=== PATIENT | male | born 1985 | race Caucasian/White ===

== ENCOUNTER → 2017-01-13 | Outpatient (CLI) | payer BC ==
--- NOTE | 2017-01-13 14:40 | REP ---
MR LUMBAR SPINE WITHOUT CONTRAST: HISTORY: Back pain. There is no disc bulge or herniation at the L1-2 through L3-4 and L5-S1 levels. The nerves exit the neural foramina without compression. A diffuse disc bulge is present at the L4-5 level. There is minimal compression of the thecal sac. The L4 nerves exit the neural foramina without compression. The conus medullaris is normal in appearance terminating at the level of the L1-2 intervertebral disc. Normal signal intensity is present in the lumbar intervertebral discs and vertebral bodies. IMPRESSION: Diffuse disc bulge at the L4-5 level with minimal thecal sac compression. Signed by Wil Izquierdo MD 01/13/2017 02:43 P
== END ==
LOC: M RAD 13:07
PROVIDERS: ATTEND Family Medicine Addiction Medicine
DX: M51.26 Other intervertebral disc displacement, lumbar region (principal)